=== PATIENT | female | born 1935 | race Caucasian/White ===

== ENCOUNTER 2019-10-03 09:03 | Inpatient (IN) | payer MEDICARE, BC ==
[~2019-10-03] VITALS: Ht 157.5 cm; Wt 80.0 kg
[~2019-10-03 09:03] MED LIST: CHOL2000 PO; HYDR25TA4 PO; LOSA50TA64 PO; OMEP20TA5 PO
[2019-10-03] MEDS ORDERED: normal saline 1000ml 1,000 ML IV ONE (09:30)
[2019-10-03] MEDS ORDERED: normal saline 1000ML IV soln IVB ONE (09:30)
[2019-10-03 09:46] LABS: ALANINE AMINOTRANSFERASE 26 U/L (12-78); ALBUMIN 3.6 G/DL (3.4-5.0); ALBUMIN/GLOBULIN RATIO 0.9 (1.1-1.5); ALKALINE PHOSPHATASE 122 IU/L (46-116); ANION GAP 9 (8-16); ASPARTATE AMINO TRANSFERASE 20 U/L (10-37); BILIRUBIN,TOTAL 1.2 MG/DL (0.1-1.0); BLOOD UREA NITROGEN 20 MG/DL (7-18); BUN/CREATININE RATIO 15.2 (6.6-38.0); CALCIUM 9.2 MG/DL (8.5-10.1); CHLORIDE 102 MMOL/L (99-107); CREATININE 1.32 MG/DL (0.40-0.90); GLUCOSE 102 MG/DL (70-104); MAGNESIUM 1.6 MG/DL (1.5-2.4); SODIUM 144 MMOL/L (135-145); TOTAL CARBON DIOXIDE 32.6 MMOL/L (24-32); TOTAL PROTEIN 7.4 G/DL (6.4-8.2); eGFR 39 ML/MIN
[2019-10-03 09:47] LABS: POTASSIUM 2.4 MMOL/L (3.5-5.1)
[2019-10-03] MEDS ORDERED: potassium Cl 10 mEq/100mL bag IV ONE (09:55)
[2019-10-03 09:59] LABS: BASOPHILS % (AUTO) 0.3 % (0-1); EOSINOPHILS # (AUTO) 0.1 X10'3 (0-0.9); HEMATOCRIT 44.3 % (35.0-45.0); HEMOGLOBIN 15.5 g/dl (12.0-16.0); LYMPHOCYTES # (AUTO) 0.9 X10'3 (1.1-4.8); LYMPHOCYTES % (AUTO) 6.9 % (21-51); MEAN CORPUSCULAR HEMOGLOBIN 36.8 PG (27.0-31.0); MEAN CORPUSCULAR HGB CONC 34.9 g/dL (33.0-36.5); MEAN CORPUSCULAR VOLUME 105.3 FL (78-98); MEAN PLATELET VOLUME 9.5 FL (7.4-10.4); MONOCYTES # (AUTO) 1.1 X10'3 (0-0.9); MONOCYTES % (AUTO) 8.4 % (2-12); NEUTROPHILS # (AUTO) 10.9 X10'3 (1.8-7.7); NEUTROPHILS % (AUTO) 83.4 % (42-75); PLATELET COUNT 235 X10'3 (140-440); RED BLOOD COUNT 4.21 X10'6 (4.20-5.60); RED CELL DISTRIBUTION WIDTH 12.7 % (11.5-14.5); WHITE BLOOD COUNT 13.1 X10'3 (4.5-11.0)
[2019-10-03] MEDS ORDERED: magnesium 2GM in 50ml NS 50 ML IV ONE (10:10)
[2019-10-03] MEDS: K and/or MAG REPLACEMENT MC SCH (10:40)
[2019-10-03] MEDS ORDERED: magnesium Cl slow-release 64mg tablet PO PRN (10:40)
[2019-10-03] MEDS ORDERED: potassium CL 10mEq/100ml bag 100 ML IV PRN ×2 (10:40)
[2019-10-03] MEDS ORDERED: mag hydrox/Alum hydrox/simeth 30ml oral suspension PO PRN (10:40)
[2019-10-03] MEDS ORDERED: bisacodyl 10mg suppository rectal RC PRN (10:40)
[2019-10-03] MEDS ORDERED: metoclopramide 5 mg/ml inj IV PRN (10:40)
[2019-10-03] MEDS ORDERED: POTASSIUM BICARB 20meq eff tab 20 MEQ TABLET.EFF PO ONE (10:40)
[2019-10-03] MEDS ORDERED: acetaminophen 325mg tablet PO PRN ×2 (10:40)
[2019-10-03] MEDS ORDERED: magnesium 2GM in 50ml NS 50 ML IV PRN (10:40)
[2019-10-03] MEDS ORDERED: magnesium 4gm in 100ml NS 100 ML IV PRN (10:40)
[2019-10-03] MEDS ORDERED: acetaminophen 650mg rectal suppository RC PRN (10:40)
[2019-10-03] MEDS ORDERED: magnesium hydroxide 30ml (MOM) UD suspension PO PRN (10:40)
[2019-10-03] MEDS ORDERED: ondansetron/PF 4mg/2ml inj IV PRN (10:40)
[2019-10-03 11:20] LABS: CLARITY,URINE CLEAR (Clear); COLOR,URINE YELLOW (Yellow); GLUCOSE, URINE NEGATIVE (Neg); KETONES,URINE NEGATIVE (Neg); LEUKOCYTE ESTERASE ,URINE NEGATIVE (Neg); NITRITES, URINE NEGATIVE (Neg); OCCULT BLOOD,URINE TRACE-INTACT (Neg); PH,URINE 5.5 (4.8-8.0); PROTEIN,URINE NEGATIVE (Neg); UROBILINOGEN,URINE 0.2 E.U/dL (0.2-1.0)
[2019-10-03 11:24] LABS: UA COLLECTION TYPE STRAIGHT CATH
--- NOTE | 2019-10-03 11:26 | NUR ---
called pharmacy, verified that potassium and LR are compatible
[2019-10-03] MEDS: ringers solution, lacted 1,000 ML IV SCH (11:27)
[2019-10-03 11:29] LABS: PHOSPHORUS 2.3 MG/DL (2.3-4.5)
[2019-10-03 11:34] LABS: SQUAMOUS EPITHELIAL CELL,UR FEW /LPF (FEW)
[2019-10-03 11:35] LABS: BACTERIA,URINE FEW /HPF (Neg); RBC,URINE 0-2 /HPF (0-2); WBC,URINE 0-4 /HPF (0-4)
[2019-10-03] MEDS ORDERED: LOSA25TA96 PO (11:43)
--- NOTE | 2019-10-03 12:16 | NUR ---
Received report from JUAN Ervin from the ED. Patient will be arriving to room 301.
[2019-10-03 12:36] VITALS: BP 145/80
--- NOTE | 2019-10-03 12:36 | NUR ---
Patient arrived to room 3012C in no acute distress. Vital signs at arrival are temp. 98.5, BP 145/80, HR 104, SpO2 91% on room air, RR 16. LR running at 100mL/hr. at the bedside. Bed locked and lowered, side rails up x 2, nonskid socks on, call light in reach, and hourly rounding.
--- NOTE | 2019-10-03 14:09 | NUR ---
Paged Dr. Walker for patient's potassium level. PAGER ID: [phone] MESSAGE: Consuelo Webber. Rm. [id number]. Potassium is now 2.8. Replacing per protocol. Thank you Felipa MARTINEZ x [phone]
[2019-10-03 15:00] VITALS: BP 134/71
[2019-10-03] MEDS: potassium Cl 20 mEq SR tablet PO PRN ×2 (15:06→21:45)
[2019-10-03] MEDS: CefTRIAXone/D5W-Rocephin 1gm 50 ML IV SCH (16:55)
--- NOTE | 2019-10-03 17:19 | NUR ---
[place] documentation: I have reviewed and agree with all interventions, assessments performed and documented by JUAN Leo. [place] Medication Administration: For this medication-pass time frame, all medication were reviewed, dispensed, administered and documented per hospital policy by JUAN Leo.
--- NOTE | 2019-10-03 18:00 | NUR ---
Patient in room PCU 3012. I have received report from Ruth MARTINEZ and Felipa MARTINEZ and had the opportunity to ask questions and assume patient care.
--- NOTE | 2019-10-03 18:21 | NUR ---
Problems reprioritized. Patient report given, questions answered & plan of care reviewed with JUAN Desai. Patient stable at transfer of care.
--- NOTE | 2019-10-03 18:23 | NUR ---
Problems reprioritized. Patient report given, questions answered & plan of care reviewed with Giselle MARTINEZ. Patient stable at transfer of care.
[2019-10-03 19:00] VITALS: BP 138/68
[2019-10-03] MEDS: heparin, porcine 5000 units/ml vial SQ SCH (19:43)
[2019-10-03] MEDS ORDERED: temazepam 15mg capsule PO PRN (21:00)
--- NOTE | 2019-10-03 22:30 | NUR ---
pt oxygenation stat dropped down to 89%, raised head of bed and rechecked O2 stats, was 90%, put pt on 2L NC to keep above oxygen protocol of 92%, pt denies any SOB or difficulty breathing, will continue to monitor
[2019-10-03 23:00] VITALS: BP 128/65
[2019-10-03 23:25] VITALS: BP 118/65
[2019-10-04] VITALS (7 sets, daily range): BP systolic 110–136; BP diastolic 31–85
--- NOTE | 2019-10-04 00:47 | NUR ---
Pt had 21 beat Vtach, is asymptomatic, BP is 136/64 HR is 100 and stating at 94% on 2L NC. provider was notified of this occurrence, ordered for 2g IV magnesium and to recheck magnesium in the morning. will continue to monitor pt
[2019-10-04] MEDS ORDERED: magnesium 2GM in 50ml NS 50 ML IV ONE (00:55)
[2019-10-04] MEDS: potassium Cl 20 mEq SR tablet PO PRN (02:20)
[2019-10-04] MEDS: ringers solution, lacted 1,000 ML IV SCH ×3 (02:21→23:09)
[2019-10-04 05:26] LABS: HEMOGLOBIN 13.3 g/dl (12.0-16.0); MEAN CORPUSCULAR HEMOGLOBIN 36.8 PG (27.0-31.0); MEAN CORPUSCULAR HGB CONC 35.1 g/dL (33.0-36.5); MEAN PLATELET VOLUME 9.3 FL (7.4-10.4); PLATELET COUNT 215 X10'3 (140-440); RED BLOOD COUNT 3.62 X10'6 (4.20-5.60); RED CELL DISTRIBUTION WIDTH 12.8 % (11.5-14.5); WHITE BLOOD COUNT 11.7 X10'3 (4.5-11.0)
[2019-10-04 05:41] LABS: ALBUMIN 2.8 G/DL (3.4-5.0); ANION GAP 8 (8-16); BLOOD UREA NITROGEN 14 MG/DL (7-18); BUN/CREATININE RATIO 14.6 (6.6-38.0); CALCIUM 8.7 MG/DL (8.5-10.1); CHLORIDE 107 MMOL/L (99-107); CHOL/HDL RATIO 2.6 (0.00-4.99); CHOLESTEROL 141 MG/DL (0-200); CREATININE 0.96 MG/DL (0.40-0.90); GLUCOSE 101 MG/DL (70-104); HDL CHOLESTEROL 55 MG/DL (35-60); LDL CHOLESTEROL 72 MG/DL (50-100); MAGNESIUM 2.8 MG/DL (1.5-2.4); PHOSPHORUS 2.3 MG/DL (2.3-4.5); POTASSIUM 3.6 MMOL/L (3.5-5.1); SODIUM 141 MMOL/L (135-145); TOTAL CARBON DIOXIDE 26.4 MMOL/L (24-32); TRIGLYCERIDES 95 MG/DL (20-135); eGFR 56 ML/MIN
--- NOTE | 2019-10-04 06:21 | NUR ---
Problems reprioritized. Patient report given, questions answered & plan of care reviewed with Mackenzie MARTINEZ.
--- NOTE | 2019-10-04 06:33 | NUR ---
Patient in room PCU 3012. I have received report from Giselle MARTINEZ and had the opportunity to ask questions and assume patient care.
[2019-10-04] MEDS: heparin, porcine 5000 units/ml vial SQ SCH ×2 (07:48→19:42)
[2019-10-04] MEDS: CefTRIAXone/D5W-Rocephin 1gm 50 ML IV SCH (07:48)
[2019-10-04] MEDS: pantoprazole 40mg Tablet.DR PO SCH (07:49)
[2019-10-04] MEDS: K and/or MAG REPLACEMENT MC SCH (08:00)
[2019-10-04] MEDS: vancomycin/NS 1 GM ADD-VANTAGE 250 ML IV SCH (17:43)
--- NOTE | 2019-10-04 18:00 | NUR ---
Patient in room PCU 3012. I have received report from Mackenzie MARTINEZ and had the opportunity to ask questions and assume patient care.
[2019-10-04] MEDS: lactobacillus rhamnosus 10,000 MMU CELLS/CAPSULE PO SCH (19:41)
[2019-10-05 03:00] VITALS: BP 130/72
[2019-10-05 05:24] LABS: ALBUMIN 2.5 G/DL (3.4-5.0); ANION GAP 11 (8-16); CALCIUM 8.3 MG/DL (8.5-10.1); CHLORIDE 106 MMOL/L (99-107); CREATININE 0.98 MG/DL (0.40-0.90); GLUCOSE 93 MG/DL (70-104); MAGNESIUM 2.1 MG/DL (1.5-2.4); PHOSPHORUS 2.8 MG/DL (2.3-4.5); POTASSIUM 3.4 MMOL/L (3.5-5.1); SODIUM 144 MMOL/L (135-145); TOTAL CARBON DIOXIDE 27.3 MMOL/L (24-32); eGFR 54 ML/MIN
[2019-10-05 05:31] LABS: BLOOD UREA NITROGEN 16 MG/DL (7-18); BUN/CREATININE RATIO 16.3 (6.6-38.0)
--- NOTE | 2019-10-05 06:16 | NUR ---
Problems reprioritized. Patient report given, questions answered & plan of care reviewed with Aletha MARTINEZ.
--- NOTE | 2019-10-05 06:19 | NUR ---
Patient in room PCU 3012C. I have received report from Mona MARTINEZ and had the opportunity to ask questions and assume patient care.
[2019-10-05 06:20] LABS: HEMOGLOBIN 12.9 g/dl (12.0-16.0); MEAN CORPUSCULAR HEMOGLOBIN 37.3 PG (27.0-31.0); MEAN CORPUSCULAR HGB CONC 35.8 g/dL (33.0-36.5); MEAN CORPUSCULAR VOLUME 104.2 FL (78-98); MEAN PLATELET VOLUME 9.8 FL (7.4-10.4); PLATELET COUNT 181 X10'3 (140-440); RED BLOOD COUNT 3.45 X10'6 (4.20-5.60); RED CELL DISTRIBUTION WIDTH 12.6 % (11.5-14.5); WHITE BLOOD COUNT 10.8 X10'3 (4.5-11.0)
[2019-10-05 06:30] VITALS: BP 133/60
[2019-10-05] MEDS: CefTRIAXone/D5W-Rocephin 1gm 50 ML IV SCH (07:18)
[2019-10-05] MEDS: potassium Cl 20 mEq SR tablet PO PRN ×3 (07:18→20:23)
[2019-10-05] MEDS: pantoprazole 40mg Tablet.DR PO SCH (07:19)
[2019-10-05] MEDS: lactobacillus rhamnosus 10,000 MMU CELLS/CAPSULE PO SCH ×2 (07:19→20:13)
[2019-10-05] MEDS: heparin, porcine 5000 units/ml vial SQ SCH ×2 (07:20→20:12)
[2019-10-05] MEDS: ringers solution, lacted 1,000 ML IV SCH ×3 (08:06→22:40)
[2019-10-05] MEDS: K and/or MAG REPLACEMENT MC SCH (08:14)
[2019-10-05] MEDS: HYDROcodone/acetaminophen 5mg/325mg tablet PO PRN ×3 (10:36→20:23)
[2019-10-05 11:00] VITALS: BP 138/72
[2019-10-05 15:00] VITALS: BP 121/78
[2019-10-05] MEDS: vancomycin/NS 1 GM ADD-VANTAGE 250 ML IV SCH (17:05)
--- NOTE | 2019-10-05 18:19 | NUR ---
Problems reprioritized. Patient report given, questions answered & plan of care reviewed with Krista MARTINEZ.
[2019-10-05 19:00] VITALS: BP 131/70
[2019-10-05] MEDS: azithromycin/NS 500mg/250ml 250 ML IV SCH (20:11)
[2019-10-05 22:00] VITALS: BP 110/52
[2019-10-06] MEDS: ringers solution, lacted 1,000 ML IV SCH (00:52)
--- NOTE | 2019-10-06 01:13 | NUR ---
Patient in room PCU 3012. I have received report from EMELINA MARTINEZ and had the opportunity to ask questions and assume patient care.
[2019-10-06 03:00] VITALS: BP 154/70
[2019-10-06 04:43] LABS: HEMATOCRIT 36.5 % (35.0-45.0); HEMOGLOBIN 12.8 g/dl (12.0-16.0); MEAN CORPUSCULAR HEMOGLOBIN 36.6 PG (27.0-31.0); MEAN CORPUSCULAR VOLUME 104.6 FL (78-98); MEAN PLATELET VOLUME 9.2 FL (7.4-10.4); PLATELET COUNT 198 X10'3 (140-440); RED BLOOD COUNT 3.49 X10'6 (4.20-5.60); RED CELL DISTRIBUTION WIDTH 12.5 % (11.5-14.5); WHITE BLOOD COUNT 9.9 X10'3 (4.5-11.0)
[2019-10-06 05:07] LABS: ALBUMIN 2.5 G/DL (3.4-5.0); ANION GAP 8 (8-16); BLOOD UREA NITROGEN 13 MG/DL (7-18); BUN/CREATININE RATIO 13.7 (6.6-38.0); CALCIUM 8.4 MG/DL (8.5-10.1); CHLORIDE 109 MMOL/L (99-107); CREATININE 0.95 MG/DL (0.40-0.90); GLUCOSE 90 MG/DL (70-104); MAGNESIUM 1.9 MG/DL (1.5-2.4); PHOSPHORUS 2.8 MG/DL (2.3-4.5); POTASSIUM 4.1 MMOL/L (3.5-5.1); SODIUM 145 MMOL/L (135-145); TOTAL CARBON DIOXIDE 27.8 MMOL/L (24-32); eGFR 56 ML/MIN
--- NOTE | 2019-10-06 06:20 | NUR ---
Patient in room PCU 3012. I have received report from JUAN Velasco and had the opportunity to ask questions and assume patient care.
--- NOTE | 2019-10-06 06:40 | NUR ---
Problems reprioritized. Patient report given, questions answered & plan of care reviewed with Radha MARTINEZ.
[2019-10-06 06:53] VITALS: BP 139/68
[2019-10-06] MEDS: pantoprazole 40mg Tablet.DR PO SCH (07:12)
[2019-10-06] MEDS: lactobacillus rhamnosus 10,000 MMU CELLS/CAPSULE PO SCH (07:12)
[2019-10-06] MEDS: heparin, porcine 5000 units/ml vial SQ SCH (07:13)
[2019-10-06] MEDS: CefTRIAXone/D5W-Rocephin 1gm 50 ML IV SCH (07:13)
[2019-10-06] MEDS: K and/or MAG REPLACEMENT MC SCH (08:00)
[2019-10-06] MEDS: azithromycin/NS 500mg/250ml 250 ML IV SCH (08:18)
[2019-10-06 11:00] VITALS: BP 124/59
--- NOTE | 2019-10-06 14:57 | NUR ---
Problems reprioritized. Patient report given, questions answered & plan of care reviewed with JUAN Smith.
--- NOTE | 2019-10-06 14:58 | NUR ---
Patient in room PCU 3012. I have received report from JUAN Garcia and had the opportunity to ask questions and assume patient care.
[2019-10-06 15:00] VITALS: BP 139/68
--- NOTE | 2019-10-06 16:55 | NUR ---
Pt discharged @ 1455 to [facility] via Miguel[facility] Cargo taken in , Report was phoned to JUAN Salmon. Pt had purse and one set of clothes.
[2019-10-07] MEDS ORDERED: azithromycin 250mg tablet PO SCH (08:00)
[2019-10-07] MEDS ORDERED: VANCOMYCIN LEVEL IV ONE (17:30)
== END 2019-10-06 16:55 | DRG 682 ==
LOC: ER 09:03 → ED HOLD 10:40 → PCU 3S 12:36
PROVIDERS: ADMIT Family Medicine; ATTEND Family Medicine
DX: N17.9 Acute kidney failure, unspecified (principal); J18.9 Pneumonia, unspecified organism; J96.01 Acute respiratory failure with hypoxia; I12.9 Hypertensive chronic kidney disease with stage 1 through stage 4 chronic kidney disease, or unspecified chronic kidney disease; K57.90 Diverticulosis of intestine, part unspecified, without perforation or abscess without bleeding; M47.9 Spondylosis, unspecified; W18.39XA Other fall on same level, initial encounter; M54.5 Low back pain; R26.2 Difficulty in walking, not elsewhere classified; E87.6 Hypokalemia; N18.9 Chronic kidney disease, unspecified; K44.9 Diaphragmatic hernia without obstruction or gangrene; Z90.49 Acquired absence of other specified parts of digestive tract; Y93.89 Activity, other specified; Y92.098 Other place in other non-institutional residence as the place of occurrence of the external cause; Y99.8 Other external cause status
CPT/HCPCS: 36415; 71045; 72131; 72148; 72170; 72192; 80048; 80053; 80061; 81001; 83605; 83735; 83880; 84100; 84132; 84145; 84443; 84484; 85025; 85027; 87040; 87081; 93005; 93306; 96374; 97110; 97116; 97161; 99285; G0378; J0456; J0696; J1644; J3370; J3475; J3480; J7120